=== PATIENT | male | born 1955 | race Caucasian/White ===

== ENCOUNTER 2016-10-24 05:26 | Inpatient (IN) ==
[2016-10-24 05:41] VITALS: BMI 22.1
[2016-10-24] MEDS ORDERED: ACETAMINOPHEN 500 MG TABLET PO ONE (06:00)
[2016-10-24] MEDS ORDERED: CEFAZOLIN 1 G INJECTION IVP ONE (06:00)
[2016-10-24] MEDS ORDERED: DEXAMETHASONE 4 MG/ML INJECTION IVP ONE (06:00)
[2016-10-24] MEDS ORDERED: ONDANSETRON 4 MG/2 ML INJECTION IVP ONE (06:00)
[2016-10-24] MEDS ORDERED: METOCLOPRAMIDE 10mg/2ml INJECTION IVP ONE (06:00)
[2016-10-24] MEDS ORDERED: FAMOTIDINE PB 20 MG/50 ML BAG IV ONE (06:00)
[2016-10-24] MEDS ORDERED: NOZIN NASAL SWAB NAS ONE ×2 (06:00→10:41)
[2016-10-24] MEDS ORDERED: TRANEXAMIC ACID 1,000 MG in NS 100 ML IV ONE ×2 (06:00→07:00)
[2016-10-24] MEDS ORDERED: LIDOCAINE 1% (10mg/ml) 2mL INJ PF SDV ID ONE (06:00)
[2016-10-24] MEDS: LR 1,000 ML IV SCH ×2 (06:10→08:00)
--- NOTE | 2016-10-24 06:52 | Anesthesia Preoperative Report ---
Anesthesia Preoperative Record - Date and Time Date: 10/24/16 Preoperative Diagnosis: Rt CLARENCE (RA) M17.11 NPO Since Date: 10/23/16 NPO Since Time: 22:00 Allergies/Adverse Reactions: Allergies Allergy/AdvReac Type Severity Reaction Status Date / Time No Known Allergies Allergy Unknown Verified 10/24/16 05:53 - Vital Signs Vital Signs: Temperature 97.8 F 10/24/16 05:39 Pulse Rate 88 10/24/16 05:39 Respiratory Rate 15 10/24/16 05:39 Blood Pressure 137/79 10/24/16 05:39 Pulse Oximetry 97 10/24/16 05:39 Oxygen Delivery Method Room Air Height and Weight: Height 1.78 m Weight 70.2 kg Body Mass Index 22.1 - Medications Inpatient Medications: Current Medications Tranexamic Acid 1,000 mg/ (Sodium Chloride) 110 mls @ 660 mls/hr IV INTRAOP ONE Stop: 10/24/16 07:09 Lactated Ringer's (Lactated Ringers) 1,000 mls @ 50 mls/hr IV .Q20H TU Last Admin: 10/24/16 06:10 Dose: 50 mls/hr Epinephrine HCl 0.25 mg/Bupivacaine HCl 30 ml/Morphine Sulfate 15 mg/Ketorolac Tromethamine 60 mg/Sodium Chloride 65.25 mls @ 1 mls/hr OPSITE INTRAOP ONE PRN Reason: Protocol Stop: 10/27/16 01:14 Sodium Chloride (Iv Flush) 10 - 80 ml IVF PRN PRN PRN Reason: [place] Home Medications: Home Medications Medication Instructions Recorded Confirmed Type Glucosamine/Chondroitin Sulf A 2 cap PO DAILY #0 07/20/08 10/24/16 History [Glucosamine-Chondroitin Cap] Naproxen Sodium [Aleve] 2 tab PO BID PRN #0 tab 07/09/13 10/23/16 History [place]-3/Dha/Epa/Fish Oil [Fish Oil 1 each PO DAILY #0 cap 07/09/13 10/24/16 History 1,000 mg Softgel] - Surgical History Musculoskeletal Surgery/Tx: Reports: Total Hip Replacement (left 2013) Hx Family Anesthesia Reaction: No History of Motion Sickness: No - Social History Smoking Status: Never smoker Hx Chewing Tobacco Use: No Second Hand Exposure: No Substance Use Type: does not use Alcohol Intake Frequency: does not drink - Physical Exam Respiratory Exam: Present: lungs clear, bilateral breath sounds equal Cardiovascular Exam: Present: regular rate and rhythm - Airway Assessment Mallampati Score: II TMD: 3 Fingerbreadths Neck Extension: good Overall Assessment: no airway concerns - ASA ASA Score: 2 - Plan Anesthesia: General Inhalation Gases, Regional Block, Neuroaxial (with sedation) Regional/Trunk Block: Spinal - Discussion Discussion: Discussed risks/options/alternatives of anesthesia and questions answered. Patient consents. Nursing pain assessment noted. Present for Discussion: family member Attestation Statement: Prior to the delivery of any anesthetic medication, I examined the patient, developed the plan, obtained the patient's consent and discussed the risk and benefits of the procedure with the patient/guardian. - Additional Information Seen by Anesthesia: Yes
[2016-10-24] MEDS ORDERED: FentaNYL 100 MCG/2 ML INJECTION ONE (07:00)
[2016-10-24] MEDS ORDERED: MIDAZOLAM 2mg/2ml INJECTION ONE (07:01)
--- NOTE | 2016-10-24 07:06 | History & Physical Update ---
- History and Physical Update Date: 10/24/16 Update: I evaluated this patient and found no changes in the history and clinical exam findings. The treatment plan and recommendations are also unchanged from the previous documentation.
[2016-10-24] MEDS ORDERED: PHENYLEPHRINE INJ 10 MG/ML VIAL IV ONE (07:13)
[2016-10-24] MEDS ORDERED: PROPOFOL 0 MG/0 ML VIAL IV ONE (07:19)
[2016-10-24] MEDS ORDERED: KETAMINE 500 MG/10 ML INJECTION ONE ×2 (07:22→11:05)
[2016-10-24] MEDS ORDERED: VANCOMYCIN 1,000 MG INJECTION ONE (07:34)
[2016-10-24] MEDS ORDERED: EPINEPHrine 0.25 MG, BUPIVACAINE 0.25% PF 30 ML, MORPHINE SULFATE 15 MG, KETOROLAC INJ ... OPSITE ONE (08:00)
[2016-10-24] MEDS ORDERED: VANCOMYCIN 1,000 MG INJECTION IAR ONE (08:38)
[2016-10-24] MEDS ORDERED: PROPOFOL 500 MG/50 ML VIAL IV ONE (08:41)
[2016-10-24] MEDS ORDERED: PROPOFOL 20 ML ONE (08:43)
--- NOTE | 2016-10-24 08:53 | Operative Note ---
- Procedure Date of Admission: 10/24/16 Side: right Preoperative Diagnosis: hip primary DJD Postoperative Diagnosis: Same as preoperative diagnosis. Operation: total hip arthroplasty Surgeon: Lisa Vasquez MD Strainer Tender: Teo Oliver Complications: None. Regional/Trunk Block: Spinal Estimated Blood Loss: See Anesthesia Record. Fluids: Please see Anesthesia Record. Description of Procedure: Mr. Garcia and his right hip were identified and marked in the preoperative holding area. He was brought back to the operating suite and spinal anesthetic was administered. He was then placed in a lateral decubitus position with his right hip up. The right lower extremity was prepped and draped in my normal sterile fashion. Timeout was performed. The [employer] robotic arm was used to assist with the surgery. A direct superior approach was utilized. An approximately 10 cm incision was made in the skin and dissection carried down to the muscle fascia which was then split in line with skin incision. A checkpoint was placed in the greater trochanter. The short external rotators were identified and tagged and detached. A capsulotomy was performed and the hip dislocated. A femoral neck osteotomy was performed at the pre-templated level measuring down from the femoral head 56 mm. The head was removed and acetabulum exposed. Labrum was removed. A checkpoint was placed superior to the acetabulum. The acetabulum was then registered with the robot. The robotic arm was then used to ream with a 55 reamer. The robot then was again used to place a 56 Trident cup in 40 of tilt and 25 of anteversion. A liner was then placed. The proximal femur was exposed and prepared with a cookie cutter followed by reaming and broaching to a size 6. We trialed with a + 2.5 head. After thorough irrigation a final Accolade 2 size [] stem with 132 neck was placed. Leg length and offset were checked with the robot and were good. A final +5 ceramic head was placed and the hip reduced. Betadine solution was used to irrigate throughout the case. It was followed by normal saline irrigation. Joint cocktail was injected throughout soft tissue. The capsulotomy was repaired with Ethibond. Short external rotators were also repaired with Ethibond. 1 g of vancomycin powder was placed into the wound. The muscle fascia was then repaired with #1 Vicryl. I then left my system to close the subcutaneous tissue with 2-0 Vicryl followed by running 4-0 Monocryl skin followed by Dermabond and a sterile dressing. The patient with any placed back into supine position and taken to recovery room in the care of anesthesia.
[2016-10-24] MEDS ORDERED: HYDROMORPHONE 2 MG/ML INJECTION IVP PRN (09:02)
--- NOTE | 2016-10-24 09:58 | Anesthesia Postoperative Note ---
- Date and Time Date: 10/24/16 Time: 09:57 - Status Patient Participated in Evaluation: Patient Participated in Person Vital Signs: Temperature 97.2 F 10/24/16 09:19 Pulse Rate 62 10/24/16 09:40 Respiratory Rate 20 10/24/16 09:30 Blood Pressure 84/49 10/24/16 09:40 Pulse Oximetry 97 10/24/16 09:25 Oxygen Delivery Method Room Air Oxygen Flow Rate 95 Respiratory Function: Airway Patent, Regular Respirations Cardiovascular Function: Regular Pulse Mental Status: Alert and Oriented Pain Intensity: 0 Hydration: IV Infusing Complications During Recover: None Apparent - Follow-Up Instructions Instructions: Per Surgeon
--- NOTE | 2016-10-24 10:08 | Anesthesia Postoperative Note ---
- Date and Time Date: 10/24/16 Time: 00:00 - Status Patient Participated in Evaluation: Patient Participated in Person Vital Signs: Temperature 97.2 F 10/24/16 09:19 Pulse Rate 62 10/24/16 09:40 Respiratory Rate 20 10/24/16 09:30 Blood Pressure 84/49 10/24/16 09:40 Pulse Oximetry 97 10/24/16 09:25 Oxygen Delivery Method Room Air Oxygen Flow Rate 95 Respiratory Function: Airway Patent Cardiovascular Function: Regular Pulse Mental Status: Alert and Oriented Pain Intensity: 0 Hydration: IV Infusing Complications During Recover: None Apparent - Follow-Up Instructions Instructions: Per Surgeon
[2016-10-24] MEDS ORDERED: DiphenhydrAMINE 50 MG/ML INJECTION IVP PRN (10:41)
[2016-10-24] MEDS ORDERED: DiphenhydrAMINE 25 MG CAPSULE PO PRN (10:41)
[2016-10-24] MEDS ORDERED: ONDANSETRON 4 MG/2 ML INJECTION IVP PRN (10:41)
[2016-10-24] MEDS ORDERED: Oxycodone *IR* 5 MG TABLET PO PRN (10:41)
[2016-10-24] MEDS ORDERED: NAPROXEN 220 MG TABLET PO PRN (10:41)
[2016-10-24] MEDS ORDERED: LORazepam 1 MG TABLET PO PRN (10:41)
[2016-10-24] MEDS: NS 1,000 ML IV SCH ×2 (10:52→23:27)
[2016-10-24] MEDS: ACETAMINOPHEN 325 MG TABLET PO SCH ×3 (13:39→21:15)
[2016-10-24] MEDS: NOZIN NASAL SWAB NAS SCH ×2 (13:39→21:14)
[2016-10-24] MEDS ORDERED: SALINE FLUSH 10ml SYRINGE IVF PRN (13:43)
--- NOTE | 2016-10-24 14:07 | XRay Report ---
Indication: postoperative image XR pelvis w/ 1 view RT hip: Comparison: 07/26/2016 Technique: Pelvis and lateral right hip Findings: Patient now shows postoperative changes of a total hip on the right. Previous study degenerative hip on the left side. Positioning and alignment seems good. Impression: Since previous study there is now postoperative changes of right total hip replacement in satisfactory position. .
[2016-10-24] MEDS: CEFAZOLIN 2 G in NS 100 ML IV SCH ×2 (15:40→22:43)
[2016-10-24] MEDS: ASPIRIN *EC* 325 MG TABLET PO SCH (21:15)
[2016-10-24] MEDS: DOCUSATE SODIUM 100 MG CAPSULE PO SCH (21:15)
[2016-10-24] MEDS ORDERED: SENNOSIDES 8.6 MG TABLET PO SCH (22:00)
[2016-10-25] MEDS: NOZIN NASAL SWAB NAS SCH ×2 (06:35→14:45)
[2016-10-25] MEDS: DOCUSATE SODIUM 100 MG CAPSULE PO SCH (08:06)
[2016-10-25] MEDS: ASPIRIN *EC* 325 MG TABLET PO SCH (08:06)
[2016-10-25] MEDS: ACETAMINOPHEN 325 MG TABLET PO SCH ×2 (08:06→12:46)
[2016-10-25] MEDS ORDERED: POLYETHYL GLYCOL 3350 17gm PACKET PO SCH (09:00)
[2016-10-25] MEDS ORDERED: SENNOSIDES 8.6 MG TABLET PO PRN (09:04)
--- NOTE | 2016-10-25 09:11 | Orthopedic Progress Note ---
Date: Subjective/Severity of Illness: David is doing great. Minimal pain. He has been mobile with good tolerance. No concerns this AM. Orthopedic Objective PO Vital signs: Temperature 97.3 F 10/25/16 07:19 Pulse Rate 68 10/25/16 07:19 Respiratory Rate 14 10/25/16 07:19 Blood Pressure 112/73 10/25/16 07:19 Pulse Oximetry 99 10/25/16 07:19 Oxygen Delivery Method Room Air Oxygen Flow Rate 97 Height and Weight: Height 5 ft 10 in Weight 154 lb 12.232 oz Body Mass Index 22.1 - Constitutional General Appearance: Present: alert, no acute distress - Respiratory Exam Present: non-labored - Cardiovascular Exam Present: Regular Rate/Rhythm (Had bradycardia yesterday with rate in the mid 40' s. Not symptomatic.) - Extremities Exam Extremities: Present: pulses intact, normal capillary refill - Surgical Site Incision: Mepilex dressing intact, no drainage - Neurological Exam Present: no deficits - Psychiatric Exam Present: alert, normal affect - Labs Result Diagrams: 10/25/16 04:22 10/25/16 04:21 Abnormal lab results 10/25/16 Range/Units 04:22 RBC 3.90 L (4.50-5.90) M/MM3 Hgb 12.3 L (13.5-17.5) GM/DL Hct 37.0 L (41-53) % H & H 10/25/16 Range/Units 04:22 Hgb 12.3 L (13.5-17.5) GM/DL Hct 37.0 L (41-53) % Orthopedic Assessment and Plan (1) Primary osteoarthritis of right hip Status: Acute Assessment and Plan: Current anti-coagulation protocol for VTE prophylaxis. SCD's. PT/OT services to improve independent function. Discharge Planning per Case Management. Hospital Course Summary Disclaimer: The visit summary below is not to be considered part of the above Progress Note.
[2016-10-25 11:55] VITALS: TEMP 96.7
--- NOTE | 2016-10-25 15:07 | Discharge Summary ---
Orthopedic Discharge Info Date of admission: 10/24/16 05:26 Primary care physician: Cb Sparrow MD Attending Physician: Mika Vasquez MD Consults: 10/24/16 05:36 Consult to Anesthesiology [CONS] Routine Consulting Provider: АЛЕКСАНДР Cline Reason For Exam: Preoperative Assessment 10/24/16 10:41 Case Management Consult [CONS] Routine Reason For Exam: Discharge Planning DME-Walker [CONS] Routine Height: 5 ft 10 in Weight: 154 lb 12.232 oz Comment: change dressing in 2 weeks Total Joint Outpatient Therapy [CONS] Routine Comment: change dressing in 2 weeks - Discharge Diagnosis (1) Primary osteoarthritis of right hip Status: Acute - Procedures Procedures: Procedures Hip bearing surface, [id number] (07/14/13) Total hip replacement (07/14/13) - Laboratory Result Diagrams: 10/25/16 04:22 10/25/16 04:21 Laboratory: Abnormal lab results 10/25/16 Range/Units 04:22 RBC 3.90 L (4.50-5.90) M/MM3 Hgb 12.3 L (13.5-17.5) GM/DL Hct 37.0 L (41-53) % H & H 10/25/16 Range/Units 04:22 Hgb 12.3 L (13.5-17.5) GM/DL Hct 37.0 L (41-53) % Orthopedic Discharge HPI - HPI Comments This patient was admitted for elective surgical tx of end stage degenerative joint disease that failed to respond to conservative treatment. Further details of this is found in the admission H&P. Orthopedic Hospital Course Hospital course: 10/25/16 15:04 After appropriate preoperative clearance and signing of operative consent, the patient was given IV antibiotics, according to orthopedic protocol. The patient was taken to the operating room and underwent elective joint arthroplasty. Following surgery, antibiotics were discontinued less than 24 hours according to joint protocol. Appropriate anticoagulants were initiated and SCDs added for DVT prevention. The dressing was clean, dry, and intact. Pain control was obtained via multimodal approach. Bowel motivation addressed with scheduled and PRN medications. Early mobilization was initiated through PT services. Discharge arrangements made by a collaborative effort between the patient and Case Management. Follow-up is scheduled in 2-3 weeks. Discharge instructions given by orthopedic providers and nursing staff at discharge. Discharge condition was good. Ongoing care required?: No - Postoperative Anemia patient received IVF, labs monitored daily, no intervention required, HGB drop- acceptable Discharge Plan - Med Rec/Dispo Referrals/Follow Up: Mika Vasquez MD [Physician] - 11/15/16 11:15 am Anam Instructions: [facility] [place] Additional Instructions: [facility] AT [facility] ON 10/27/2016 AT 8:00AM FOR PHYSICAL THERAPY EVAL. PHONE [phone] Prescriptions: New Aspirin *EC* [Ecotrin] 325 mg PO BID #84 tablet Oxycodone *Ir* [Roxicodone *Ir*] 5 - 15 mg PO Q3H PRN #60 tablet PRN Reason: Breakthrough Pain Acetaminophen [Tylenol] 650 mg PO QID #100 tablet Continue Glucosamine/Chondroitin Sulf A [Glucosamine-Chondroitin Cap] 2 cap PO DAILY # 0 [place]-3/Dha/Epa/Fish Oil [Fish Oil 1,000 mg Softgel] 1 each PO DAILY #0 cap Naproxen Sodium [Aleve] 2 tab PO BID PRN #0 tab PRN Reason: Pain - Disposition 01 Discharged Home, Self-Care
[2016-10-25 15:18] VITALS: BP 113/68; PULSE 68; RESP 16; O2SAT 98
[2016-10-26] MEDS ORDERED: BISACODYL 10 MG SUPPOSITORY RECTALLY SCH (20:00)
== END 2016-10-25 15:45 | disposition home or self-care (01) | DRG 470 ==
LOC: SRG 05:26
PROVIDERS: ADMIT Orthopaedic Surgery; ATTEND Orthopaedic Surgery